=== PATIENT | female | born 1995 | race Caucasian/White ===

== ENCOUNTER 2018-08-15 07:50 | Emergency (ER) | payer BC ==
[~2018-08-15] VITALS: Ht 167.6 cm; Wt 98.9 kg
[2018-08-15] MEDS ORDERED: SERTRALINE HCL100 MG PO (08:03)
[2018-08-15] MEDS ORDERED: PRENATAL PO (08:04)
[2018-08-15 08:22] LABS: URINE BILIRUBIN NEGATIVE (Negative); URINE BLOOD NEGATIVE (Negative); URINE CLARITY CLEAR; URINE COLOR YELLOW; URINE GLUCOSE-RANDOM NEGATIVE (Negative); URINE KETONES NEGATIVE (Negative); URINE LEUKOCYTES-REFLEX TRACE (Negative); URINE NITRITE-REFLEX NEGATIVE (Negative); URINE PROTEIN NEGATIVE (Negative); URINE SPECIFIC GRAVITY >= 1.030 (1.005-1.030); URINE UROBILINOGEN 0.2 E.U./dl (0.2-1.0)
[2018-08-15 08:27] LABS: HEMATOCRIT 34.6 % (37.0-47.0); HEMOGLOBIN 11.7 gm/dL (12.0-15.0); MCH 27.4 pg (26.0-34.0); MCHC 33.8 g/dL (28.0-37.0); MCV 81.1 fL (80.0-100.0); RBC 4.27 mil/uL (4.20-5.00); RDW-CV 15.2 % (10.5-14.5); WBC 9.9 thou/uL (4.0-11.0)
[2018-08-15 08:33] LABS: CASTS None Seen /LPF (None Seen); CRYSTALS None Seen /LPF (None Seen); MUCUS 4-6 Moderate strn/LPF (None Seen); SQUAMOUS 4-10 Moderate /LPF (0-3); URINE RBC 0-2 Rare /HPF (0-2); URINE WBC-REFLEX 6-15 Few /HPF (0-5)
[2018-08-15 08:38] LABS: ALBUMIN 2.7 g/dL (3.4-5.0); CALCIUM 8.9 mg/dL (8.5-10.1); CREATININE 0.7 mg/dL (0.6-1.3); POTASSIUM 3.8 mmol/L (3.5-5.1); TOTAL BILIRUBIN 0.1 mg/dL (<0.1-1.0); TOTAL PROTEIN 7.1 g/dL (6.4-8.2)
[2018-08-15] MEDS ORDERED: KEFLEX500 M1 PO (10:17)
[2018-08-15] MEDS ORDERED: HYDROCODONE-AP1 EAC6 PO (10:17)
[2018-08-15 10:34] VITALS: BP 116/59
== END 2018-08-15 10:35 | disposition home or self-care (01) ==
LOC: M.ERS 07:50
PROVIDERS: Emergency Medicine Emergency Medical Services
DX: O26.892 Other specified pregnancy related conditions, second trimester (principal); O99.342 Other mental disorders complicating pregnancy, second trimester; Z3A.17 17 weeks gestation of pregnancy; R10.11 Right upper quadrant pain; R10.31 Right lower quadrant pain; F31.9 Bipolar disorder, unspecified